=== PATIENT | male | born 1980 | race Two or more races ===

== ENCOUNTER 2017-08-10 14:12 | Outpatient (CLI) | payer BC ==
[2017-08-10 18:04] LABS: ALANINE AMINOTRANSFERASE 32 U/L (12-78); ALBUMIN/GLOBULIN RATIO 1.1 (1.0-2.7); ANION GAP 7 (5-15); ASPARTATE AMINO TRANSFERASE 19 U/L (15-37); CARBON DIOXIDE 29 MMOL/L (21-32); CHLORIDE 99 MMOL/L (98-107); CREATININE 1.2 MG/DL (0.55-1.30); GLOMERULAR FILTRATION RATE > 60 mL/min (>60); POTASSIUM 4.1 MMOL/L (3.5-5.1); SODIUM 135 MMOL/L (136-145); TOTAL PROTEIN 7.5 G/DL (6.4-8.2)
[2017-08-14 11:13] LABS: IMMUNOGLOBULIN A 195 mg/dL (90-386)
== END 2017-08-10 14:45 | disposition home or self-care (01) ==
LOC: PAN 14:12
DX: R10.9 Unspecified abdominal pain (principal); R14.0 Abdominal distension (gaseous)
CPT/HCPCS: 36415; 80053; 82378; 82784; 83013; 83516; 83520; 86255